=== PATIENT | female | born 1950 | race American Indian/Alaskan Native ===

== ENCOUNTER 2017-12-28 12:01 | Emergency (ER) | payer MEDICARE ==
[2017-12-28 12:14] VITALS: BP 140/64
[2017-12-28] MEDS ORDERED: TYLENOL PO ONE (14:36)
[2017-12-28] MEDS ORDERED: MOTRIN PO ONE (14:36)
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
--- NOTE | 2017-12-28 15:39 | XRay Report ---
Right knee 3 views: History: Knee pain. Findings: Minimal narrowing medial and patellofemoral compartment knee joint with suspected early degenerative changes. Spur is identified at the anterior aspect of patella. No joint effusion. No soft tissue calcification. Impression: Mild degenerative changes medial and patellofemoral compartment knee joint.
== END 2017-12-28 15:47 | disposition home or self-care (01) ==
LOC: ED 12:01
DX: M25.561 Pain in right knee (principal); R22.41 Localized swelling, mass and lump, right lower limb; E11.9 Type 2 diabetes mellitus without complications; Z90.710 Acquired absence of both cervix and uterus
CPT/HCPCS: 99283

== ENCOUNTER 2019-03-21 07:45 | Emergency (ER) | payer OTHER, MEDICARE ==
[2019-03-21] MEDS ORDERED: KETOROLAC 30 MG/1 ML INJ IM ONE (08:22)
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
[2019-03-21 10:37] VITALS: BP 128/68
== END 2019-03-21 10:36 | disposition home or self-care (01) ==
LOC: ED 07:45
DX: S39.012A Strain of muscle, fascia and tendon of lower back, initial encounter (principal); S63.501A Unspecified sprain of right wrist, initial encounter; S80.01XA Contusion of right knee, initial encounter; S80.02XA Contusion of left knee, initial encounter; E11.9 Type 2 diabetes mellitus without complications; Z90.710 Acquired absence of both cervix and uterus; Z79.899 Other long term (current) drug therapy; V49.49XA Driver injured in collision with other motor vehicles in traffic accident, initial encounter; Y93.89 Activity, other specified; Y92.410 Unspecified street and highway as the place of occurrence of the external cause; Y99.8 Other external cause status
CPT/HCPCS: 72100; 73100; 73560; 96372; 99283; J1885